=== PATIENT | male | born 1985 | race Caucasian/White ===

== ENCOUNTER 2016-06-19 20:25 | Emergency (ER) | payer OTHER ==
[~2016-06-19] VITALS: Ht 167.6 cm; Wt 78.7 kg
[2016-06-19 22:49] LABS: HEMATOCRIT 42.3 % (38.0-50.0); MCH 31.4 PG (29.0-34.0); MCHC 35.2 G/DL (30.0-36.0); MCV 89.2 FL (86-99); MEAN PLAT.VOLUME 9.8 uM^3 (9.0-12.4); PLATELET COUNT 270 K/uL (156-360); RBC DIS.WIDTH-CV 11.8 % (11.8-14.6); RBC DIS.WIDTH-SD 38.3 % (39-53); RED BLOOD COUNT 4.74 M/uL (4.00-5.50); WHITE BLOOD COUNT 8.7 K/uL (4.1-10.2)
[2016-06-19 23:03] LABS: CHLORIDE 106 mEq/L (99-109); POTASSIUM 3.7 mEq/L (3.7-5.4); SODIUM 140 mEq/L (136-147)
[2016-06-19 23:05] LABS: GLUCOSE 108 mg/dL (70-99)
[2016-06-19 23:07] LABS: ANION GAP 10 MEQ/L (2-14)
[2016-06-19 23:09] LABS: GFR ESTIMATE (CALCULATED) > 59 mL/min/
[2016-06-19 23:10] LABS: UREA NITROGEN (BUN) 11 mg/dL (9-23)
[2016-06-19] MEDS ORDERED: NAPROSYN500 MG PO (23:57)
[2016-06-20 00:39] VITALS: BP 132/76
== END 2016-06-20 00:40 | disposition home or self-care (01) ==
LOC: EME 20:25
PROVIDERS: Nurse Practitioner Family
DX: L03.211 Cellulitis of face (principal); K02.9 Dental caries, unspecified; F17.200 Nicotine dependence, unspecified, uncomplicated
CPT/HCPCS: 70487; 80048; 85027; 99281; 99283